=== PATIENT | male | born 1985 | race Caucasian/White ===

== ENCOUNTER → 2017-12-21 | Outpatient (CLI) | payer OTHER ==
--- NOTE | 2017-12-21 14:24 | Diagnostic Imaging Report ---
INDICATION: Nephrolithiasis. Two views were obtained. FINDINGS: The bowel gas pattern is nonspecific. There is moderate amount of retained fecal material likely reflecting some degree of constipation. No definitive radiopaque stones projected over either kidney or in the pelvis. IMPRESSION: No definitive radiographic evidence of nephrolithiasis. Dictated by: Dictated on workstation # [id number]
== END ==
LOC: RAD 13:42
PROVIDERS: ATTEND Urology
DX: N20.0 Calculus of kidney (principal)
CPT/HCPCS: 74018

== ENCOUNTER 2021-08-09 18:35 | Emergency (ER) | payer OTHER ==
[~2021-08-09] VITALS: Ht 172 cm; Wt 86.0 kg
[2021-08-09 18:57] LABS: BACTERIA,URINE FEW /HPF; BILIRUBIN,URINE NEGATIVE (NEGATIVE); CLARITY,URINE CLEAR; COLOR,URINE YELLOW; GLUCOSE, URINE (UA) NEGATIVE (NEGATIVE); KETONES,URINE 1+ (NEGATIVE); LEUKOCYTE ESTERASE ,URINE NEGATIVE (NEGATIVE); NITRITE,URINE NEGATIVE (NEGATIVE); PROTEIN,URINE NEGATIVE (NEGATIVE); RBC,URINE 25-50 /HPF
[2021-08-09] MEDS ORDERED: KETOROLAC 30 MG/ML VIAL IVP ONE (19:00)
[2021-08-09] MEDS ORDERED: ONDANSETRON 4 MG/2 ML (SDV) Z0FRAN IVP ONE (19:00)
[2021-08-09] MEDS ORDERED: fentaNYL INJ 100 MCG/2 ML AMP IVP ONE (19:00)
--- NOTE | 2021-08-09 19:01 | ED Back Pain ---
General Chief Complaint: Abdominal/GI Problems Stated Complaint: VOMITING; LRQ PAIN Nursing Triage Note: Pt c/o RLQ abd pain that radiates to his right flank with n/v. Pt has had hx of kidney stones and reports pain feels similar. Denies fever or pain with urination. 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 Source of Information: Patient Exam Limitations: No Limitations History of Present Illness Date Seen by Provider: August 09, 2021 Time Seen by Provider: 18:40 Initial Comments Patient is a 36-year-old male with history of kidney stones presents with acute onset right flank pain radiating to right lower quadrant starting earlier this morning. Pain waxes and wanes moderate to severe is dull and aching. Associated with nausea and vomiting. No hematuria, urinary frequency urgency dysuria or testicular pain or swelling. No other acute symptoms or complaints. Patient passed last kidney stone spontaneously 3 years ago. Timing/Duration: Other Severity: Severe Radiation: Other Modifying Factors: Improves With Other Associated Symptoms: other Allergies and Home Medications Allergies Coded Allergies: No Known Allergies (Verified Allergy, Unknown, 08/09/21) Patient Home Medication List Home Medication List Reviewed: Yes Review of Systems Constitutional: see HPI EENTM: see HPI Respiratory: see HPI Cardiovascular: see HPI Gastrointestinal: see HPI Genitourinary: see HPI Musculoskeletal: see HPI Skin: see HPI Psychiatric/Neurological: See HPI All Other Systems Reviewed Negative Unless Noted: Yes Past Kntockb-Ttjnta-Txeqlq Hx Patient Social History Tobacco Use?: No Use of E-Cig and/or Vaping dev: No Substance use?: No Alcohol Use?: No Pt feels they are or have been: No Immunizations Up To Date Influenza Vaccine Up-to-Date: No; Not Current First/Initial COVID19 Vaccinat: denies Physical Exam Vital Signs Vital Signs - First Documented 08/09/21 18:38 Temp 36.0 Pulse 70 Resp 17 B/P (MAP) 155/98 (117) Pulse Ox 98 O2 Delivery Room Air Capillary Refill : Less Than 3 Seconds Height, Weight, BMI Height: '" Weight: lbs. oz. kg; 29.00 BMI Method: General Appearance: No Apparent Distress, Moderate Distress HEENT: PERRL/EOMI, Normal ENT Inspection, Moist Mucous Membranes Neck: Full Range of Motion, Normal Inspection Respiratory: Lungs Clear, Normal Breath Sounds Gastrointestinal: Non Tender, Soft Back: Normal Inspection, No CVA Tenderness Neurologic/Psychiatric: Alert, Oriented x3, Normal Mood/Affect Progress/Results/Core Measures Results/Orders Lab Results Laboratory Tests Test 08/09/21 18:37 Range/Units Urine Color YELLOW Urine Clarity CLEAR Urine pH 6.0 5-9 Urine Specific [place] 1.025 H 1.016-1.022 Urine Protein NEGATIVE NEGATIVE Urine Glucose (UA) NEGATIVE NEGATIVE Urine Ketones 1+ H NEGATIVE Urine Nitrite NEGATIVE NEGATIVE Urine Bilirubin NEGATIVE NEGATIVE Urine Urobilinogen 0.2 < = 1.0 MG/DL Urine Leukocyte Esterase NEGATIVE NEGATIVE Urine RBC (Auto) 1+ H NEGATIVE Urine RBC 25-50 H /HPF Urine WBC NONE /HPF Urine Crystals NONE /LPF Urine Bacteria FEW H /HPF Urine Casts PRESENT /LPF Urine Granular Casts 5-10 H /LPF Urine Coarse Granular Casts 0-2 H /LPF Urine Mucus MODERATE H /LPF Urine Culture Indicated YES My Orders Orders - WINNIE BERMUDEZ DO Ct Abd/Pelvis Wo(Kidney Stone) (08/09/21 18:52) Ua Culture If Indicated (08/09/21 18:52) Fentanyl Inj (Sublimaze Injection) (08/09/21 19:00) Ondansetron Injection (Zofran Injectio (08/09/21 19:00) Ketorolac Injection (Toradol Injection) (08/09/21 19:00) Urine Culture (08/09/21 18:37) Morphine Injection (Morphine Injection (08/09/21 19:36) Medications Given in ED Current Medications Medications Dose Ordered Sig/Thanh Route Start Time Stop Time Status Last Admin Dose Admin Fentanyl Citrate 100 mcg ONCE ONCE IVP 08/09/21 19:00 08/09/21 19:01 DC 08/09/21 19:04 100 MCG Ketorolac Tromethamine 30 mg ONCE ONCE IVP 08/09/21 19:00 08/09/21 19:01 DC 08/09/21 19:02 30 MG Ondansetron HCl 4 mg ONCE ONCE IVP 08/09/21 19:00 08/09/21 19:01 DC 08/09/21 19:02 4 MG Vital Signs/I&O 08/09/21 08/09/21 18:38 19:15 Temp 36.0 Pulse 70 79 Resp 17 15 B/P (MAP) 155/98 (117) 127/89 Pulse Ox 98 95 O2 Delivery Room Air Room Air Blood Pressure Mean: 117 Departure Communication (Admissions) CT abdomen pelvis: 3 mm distal R ureteral stone with mild hydronephrosis. Patient's pain improved. He is resting comfortably. 3 mm stone with mild hydronephrosis only. Recommendations supportive care watchful waiting and PCP follow-up. Return precautions reviewed. Patient verbalizes understanding a greement discharge instructions prior to departure peer Impression Primary Impression: Kidney stone Disposition: HOME, SELF-CARE Condition: Stable Departure-Patient Inst. Decision time for Depature: 19:54 Referrals: GARRET RAVI DO (PCP) Primary Care Physician Patient Instructions: Kidney Stone, Adult ED Add. Discharge Instructions: You were evaluated emergency department for right flank pain. CT scan was performed and shows a small stone in your distal ureter. This should pass spontaneously. Please increase fluids and strain your urine for passage of s tone. You may take newly prescribed medications as directed. Follow-up with your PCP early next week if symptoms persist. Return to the ED if new or worsening symptoms. All discharge instructions reviewed with patient and/or family. Voiced understanding. Scripts Ondansetron (Ondansetron Odt) 4 Mg Tab.rapdis 4 MG PO Q6H, #10 TAB Prov: WINNIE BERMUDEZ DO 08/09/21 Ketorolac Tromethamine (Ketorolac Tromethamine) 10 Mg Tablet 10 MG PO BID, #15 TAB Prov: WINNIE BERMUDEZ DO 08/09/21 Oxycodone HCl/Acetaminophen (Percocet 5-325 mg Tablet) 5 Mg-325 Mg Tablet 1 TAB PO Q4H PRN for PAIN-MODERATE MDD 6 for 7 Days, #12 TAB Prov: WINNIE BERMUDEZ DO 08/09/21 WINNIE BERMUDEZ DO August 09, 2021 19:01
[2021-08-09] MEDS ORDERED: morphine INJ 10 MG/ML 1ML (SYR OR VIAL) IVP STA (19:36)
--- NOTE | 2021-08-09 19:44 | Diagnostic Imaging Report ---
CT abd/pelvis w/o (kidney stone) TECHNIQUE: Unenhanced CT imaging of the abdomen and pelvis was performed. 2D reformats are created and submitted for interpretation. Automatic exposure controls were utilized to optimize patient dose. INDICATION: Right flank pain. COMPARISON: None available. FINDINGS: Evaluation of the abdominal viscera is suboptimal without contrast. Lower chest: Lung bases are clear. No pericardial or pleural effusion. Peritoneum: No free intraperitoneal air or fluid. Liver and biliary system: Diffuse hypoattenuation of liver is indicative of hepatic steatosis. No focal hepatic lesion. The gallbladder is normal. No biliary duct dilation. Spleen and Pancreas: Spleen is normal. Unenhanced pancreas is grossly normal. Adrenals: Normal. tract: There is a 3 mm partially obstructing stone in the right distal ureter at the UVJ. This results in mild right hydroureter and hydronephrosis. There is an additional nonobstructing 4 mm stone in the mid right kidney. No left renal or ureteral stones. Urinary bladder is decompressed, limiting assessment. The prostate is not enlarged. GI tract: Stomach is decompressed. No bowel obstruction. No pericolonic inflammatory changes. Normal appendix. Vasculature and Lymph nodes: Normal caliber aorta. No abdominal or pelvic lymphadenopathy. Musculoskeletal: No concerning osseous lesion. IMPRESSION: 1. Mild right hydronephrosis and hydroureter due to a 3 mm partially obstructing stone at the right UVJ. 2. Additional nonobstructing 4 mm right renal stone. 3. Mild diffuse hepatic steatosis. Dictated by: Dictated on workstation # [id number]
[2021-08-09] MEDS ORDERED: OXYC-199 PO (19:56)
[2021-08-09] MEDS ORDERED: KETO10TA PO (19:56)
[2021-08-09] MEDS ORDERED: ONDA4TAB11 PO (19:56)
[2021-08-09] MEDS ORDERED: RX-ONDANSETRON 4 MG ODT (ZOFRAN) PPK #4 PO STA (20:03)
[2021-08-09 20:11] VITALS: BP 138/89
== END 2021-08-09 20:11 | disposition home or self-care (01) ==
LOC: EDUNIT# 18:35 → ER FS 18:37
DX: N13.2 Hydronephrosis with renal and ureteral calculous obstruction (principal)
CPT/HCPCS: 74176; 81000; 87088

== ENCOUNTER → 2022-03-13 | Outpatient (CLI) | payer OTHER ==
[~2022-03-13] MED LIST: GADOTERATE 0.5 MMOL/ML (CLARISCAN) 15 ML VIAL IV ONE; KETO10TA PO; ONDA4TAB11 PO; OXYC-199 PO
--- NOTE | 2022-03-13 10:43 | Diagnostic Imaging Report ---
EXAMINATION: Magnetic resonance imaging of the left wrist without and with intravenous contrast DATE: March 13, 2022. COMPARISON: None. HISTORY: 36-year-old male, left wrist pain. Concern for mass. TECHNIQUE: Magnetic Resonance Imaging sequences were performed of the wrist without and with intravenous contrast. FINDINGS: TRIANGULAR FIBROCARTILAGE COMPLEX: The triangular fibrocartilage complex is grossly intact. INTRINSIC LIGAMENTS: The scapholunate and lunotriquetral ligaments are grossly intact. JOINTS: The radiocarpal, intercarpal, and distal radioulnar joints are intact. There is no joint effusion. CARPAL TUNNEL: The flexor retinaculum is unremarkable. The flexor digitorum superficialis and profundus are intact. The median nerve is unremarkable. FLEXOR TENDONS: The flexor carpi ulnaris, flexor pollicis longus and carpi radialis are intact. EXTENSOR TENDONS: Radial side extensor tendons are intact including: extensor pollicis longus, extensor carpi radialis brevis, extensor carpi radialis longus, extensor pollicis brevis and abductor pollicis longus. The extensor carpi ulnaris, extensor digitorum, extensor digiti minimi and extensor indicis tendons are intact. BONE: There is an intramedullary T2 hyperintense lobulated lesion in the proximal metaphysis of the second metacarpal measuring 7 mm in size most likely reflecting an enchondroma. There is no pronounced endosteal scalloping. There is a normal variant type II lunate facet. There is no acute fracture, bone contusion, or evidence of osteonecrosis. BURSAE AND SOFT TISSUES: There is ill-defined soft tissue edema and enhancement radially located which is centered in the area of marker denoting area of focal concern which is the level of the first extensor compartment tendon sheaths and is centered near the radioscaphoid articulation. There is no well-formed ganglion cyst at this location or nodular enhancing mass. There is a ganglion cyst measuring approximately 6 x 4 x 6 mm in size which is just radial to the mid scaphoid on axial T2 fat saturation sequence image 12 and coronal T2 fat saturation sequence image 9. IMPRESSION: 1. Ill-defined soft tissue edema and enhancement in the region of focal concern which is just deep to the first extensor compartment tendons near the radioscaphoid articulation. This is entirely nonspecific. There is no current well formed ganglion cyst or nodular enhancing soft tissue mass. Although a ruptured ganglion cyst would be considered in the differential diagnosis, there should not be contrast enhancement at this location. Differential considerations would include infectious and inflammatory etiologies as well as neoplastic etiology. Recommend correlation clinically and at minimum, short-term interval followup is recommended. 2. Ganglion cyst just radial to the mid capitate measuring 6 x 4 x 6 mm in size. 3. Probable benign enchondroma in the second metacarpal. Dictated by: Dictated on workstation # [id number]
== END ==
LOC: RAD 09:30
PROVIDERS: ATTEND Nurse Practitioner Family
DX: M60.242 Foreign body granuloma of soft tissue, not elsewhere classified, left hand (principal); M67.422 Ganglion, left elbow
CPT/HCPCS: 73223

== ENCOUNTER 2022-05-24 22:19 | Emergency (ER) | payer OTHER ==
[~2022-05-24 22:19] MED LIST changes: -GADOTERATE 0.5 MMOL/ML (CLARISCAN) 15 ML VIAL IV ONE
[2022-05-24] MEDS ORDERED: ACHD5005 PO (22:53)
--- NOTE | 2022-05-24 22:53 | ED Lower Extremity ---
General Chief Complaint: Lower Extremity Stated Complaint: LEFT ANKLE INJURY Nursing Triage Note: Pt presents with left lower leg pain. Pt states he was playing basketball and felt something "pop" Source: patient Exam Limitations: no limitations History of Present Illness Date Seen by Provider: May 24, 2022 Time Seen by Provider: 22:20 Initial Comments 37-year-old male with no pertinent past medical history coming in after he was playing basketball, planted, felt a pop in his left lower leg around his Achilles and felt like it tore. This occurred just prior to arrival. Has not taken any medicines for it. Pain is constant, worse with any type of movement, better with rest. Has not been able to put any weight on it anything. Otherwise denies any other acute complaints Allergies and Home Medications Allergies Coded Allergies: No Known Allergies (Verified Allergy, Unknown, 08/09/21) Patient Home Medication List Home Medication List Reviewed: Yes Ketorolac Tromethamine (Ketorolac Tromethamine) 10 Mg Tablet, 10 MG PO BID Prescribed by: WINNIE BERMUDEZ on 08/09/211955 Ondansetron (Ondansetron Odt) 4 Mg Tab.rapdis, 4 MG PO Q6H Prescribed by: WINNIE BERMUDEZ on 08/09/211955 Oxycodone HCl/Acetaminophen (Percocet 5-325 mg Tablet) 5 Mg-325 Mg Tablet, 1 TAB PO Q4H PRN for PAIN-MODERATE Prescribed by: WINNIE BERMUDEZ on 08/09/211956 Review of Systems Constitutional: No fever EENTM: no symptoms reported Respiratory: no symptoms reported Cardiovascular: no symptoms reported Gastrointestinal: no symptoms reported Genitourinary: no symptoms reported Musculoskeletal: see HPI Past Pkuloxw-Zovlsl-Ethzjd Hx Patient Social History Tobacco Use?: No Use of E-Cig and/or Vaping dev: No Substance use?: No Alcohol Use?: No Pt feels they are or have been: No Immunizations Up To Date First/Initial COVID19 Vaccinat: denies Physical Exam Vital Signs Vital Signs - First Documented 05/24/22 22:19 Temp 36.5 Pulse 98 Resp 20 B/P (MAP) 141/88 (105) Pulse Ox 97 O2 Delivery Room Air Capillary Refill : Less Than 3 Seconds Height, Weight, BMI Height: '" Weight: lbs. oz. kg; 29.00 BMI Method: General Appearance: WD/WN, mild distress Neck: full range of motion Cardiovascular: regular rate, rhythm Respiratory: no respiratory distress Gastrointestinal: No distended Ankles: bilateral ankle other (Left Achilles with tenderness along the distal aspect of the calf, some swelling compared to the right, Casey test is positive and concerning for Achilles rupture on the left, normal distal sensation, normal distal capillary refill, normal distal pulses, able to move toes, normal dorsiflexion of both feet) Feet: bilateral foot non-tender, bilateral foot normal inspection, bilateral foot normal range of motion, bilateral foot no evidence of injury Neurologic/Tendon: normal sensation, normal motor functions Neurologic/Psychiatric: alert Skin: normal color, warm/dry Procedures/Interventions Splinting and Joint Reduction : Splint Application: Short Leg (Ortho-Glass was used followed by Bobby wrap. Patient was neurovascularly intact before and after the procedure and he tolerated it well) Progress/Results/Core Measures Results/Orders My Orders Orders - JORDAN QUIROS MD Hydrocodone/Apap 5/325 Tablet (Lortab 5 (05/24/22 23:00) Rx-Hydrocodone/Apap 5-325 Mg (Rx-Vicodin (05/24/22 23:00) Vital Signs/I&O 05/24/22 22:19 Temp 36.5 Pulse 98 Resp 20 B/P (MAP) 141/88 (105) Pulse Ox 97 O2 Delivery Room Air Blood Pressure Mean: 105 Progress Progress Note : Progress Note 37-year-old male with above history coming in due to left Achilles pain after playing basketball. ABCs were intact and vitals were stable on presentation. Physical exam with a positive Casey's test concerning for left Achilles rupture. This was confirmed on ultrasound which I did at the bedside. Neurovascularly intact. A posterior splint was applied to his left leg with very slight plantarflexion. Patient tolerated this well. Given hydrocodone here as well as prescription. Should follow-up with orthopedics as an outpatient. Departure Impression Primary Impression: Achilles rupture, left Qualified Codes: S86.012A - Strain of left Achilles tendon, initial encounter Disposition: 01 HOME, SELF-CARE Condition: Stable Departure-Patient Inst. Decision time for Depature: 23:05 Referrals: GARRET RAVI DO (PCP/Family) Primary Care Physician TYRONE CALLAWAY MD Patient Instructions: Achilles Tendon Rupture (DC) Add. Discharge Instructions: Based on your exam, we are concerned your Achilles tendon is ruptured. Some surgeons prefer to operate on this depending on the case, but it is also possible to heal with chest the splint and time. Do not put any weight on it at all and use crutches. Take ibuprofen as needed for pain, you can take hydrocodone if you have pain on top of that. Scripts Hydrocodone/Acetaminophen (Hydrocodone-Acetamin 5-325 mg) 5 Mg-325 Mg Tablet 1 TAB PO Q6H PRN for PAIN-MODERATE (5-7) for 3 Days, #12 TAB Prov: JORDAN QUIROS MD 05/24/22 Work/School Note: Work Release Form Date Seen in the Emergency Department: May 24, 2022 Return to Work: May 26, 2022 Restrictions: No Restrictions JORDAN QUIROS MD May 24, 2022 22:53
[2022-05-24 22:56] VITALS: BP 141/88
[2022-05-24] MEDS ORDERED: HYDROcodone/APAP 5 MG/325 MG (LORTAB) TAB PO ONE (23:00)
== END 2022-05-24 22:57 | disposition home or self-care (01) ==
LOC: EDUNIT# 22:19 → ER FS 22:22
DX: S86.012A Strain of left Achilles tendon, initial encounter (principal); Z28.310 Unvaccinated for COVID-19; X50.0XXA Overexertion from strenuous movement or load, initial encounter; Y93.67 Activity, basketball
CPT/HCPCS: 99283